=== PATIENT | male | born 1940 | race Caucasian/White ===

== ENCOUNTER 2017-02-25 06:59 | Observation (INO) ==
[2017-02-25] MEDS ORDERED: ASPIRIN PO STA (07:05)
--- NOTE | 2017-02-25 07:09 | EKG Report ---
Test Performed on : 02/25/2017 07:05:14 AM Test Reason : CHEST PAIN Blood Pressure : / mmHG Vent. Rate : 064 BPM Atrial Rate : 312 BPM P-R Int : 000 ms QRS Dur : 096 ms QT Int : 448 ms P-R-T Axes : 000 007 094 degrees QTc Int : [address] \T\ T wave abnormality, consider inferolateral ischemia Prolonged QT Abnormal ECG When compared with ECG of 17-NOV-2015 11:53, Inverted T waves have replaced nonspecific T wave abnormality in Lateral leads Unconfirmed Result
[2017-02-25 07:27] LABS: MANUAL DIFF NEEDED? NO
[2017-02-25 07:31] LABS: BASO% 0.5 % (0.0-0.8); EOS# 0.16 X1000 (0.0-0.7); EOS% 4.1 % (0.0-10.0); HEMATOCRIT 39.2 % (42.0-52.0); HEMOGLOBIN 13.5 g/dL (14.0-18.0); IMM GRAN# 0.01 X1000 (0.0-0.04); IMM GRAN% 0.3 % (0.0-0.5); LYMPH# 0.96 X1000 (1.2-3.4); LYMPH% 24.6 % (20.5-51.1); MCH 33.8 PG (27-31); MCHC 34.4 g/dL (33-37); MONO# 0.27 X1000 (0.11-0.59); MONO% 6.9 % (1.7-9.3); MPV 9.3 FL (7.4-10.4); NEUT% 63.6 % (42.2-75.2); PLT 146 X1000 (130-400)
--- NOTE | 2017-02-25 07:32 | PROVIDER DOCUMENTATION ---
HPI-Chest Pain - General Chief Complaint: Chest Pain Stated Complaint: chest pain Time Seen by Provider: 02/25/17 07:05 Source: patient Allergies/Adverse Reactions: Patient Allergies Allergy/AdvReac Type Severity Reaction Status Date / Time codeine [Codeine] Allergy Mild NAUSEA/VOMI Verified 05/12/16 09:02 TING Home Medications: Home Medication List Medication Instructions Recorded Confirmed Last Taken Type Aspirin [Aspir 81] 81 mg PO QAM 06/08/12 05/13/16 05/10/16 History Clonazepam [Klonopin] 1 mg PO QHS 06/08/12 05/13/16 05/12/16 History Clopidogrel Bisulfate [Plavix] 75 mg PO QAM 06/08/12 05/12/16 05/07/16 History Ranolazine [Ranexa] 1,000 mg PO BID 06/08/12 05/13/16 05/13/16 06:00 History Tamsulosin HCl [Flomax] 0.4 mg PO BID 06/08/12 05/13/16 05/13/16 06:00 History PRAVAstatin [Pravachol] 40 mg PO QHS 08/01/13 05/13/16 05/12/16 History Pantoprazole [Protonix] 40 mg PO DAILY@0700 08/01/13 05/13/16 05/13/16 06:00 History Carbidopa/Levodopa [Carbidopa-Levo 1 each PO TID 03/16/14 05/13/16 05/13/16 06: 00 History 25-100 Tab] Dutasteride [Avodart] 0.5 mg PO DAILY 02/25/17 02/25/17 Unknown History Quetiapine Fumarate [Seroquel] 25 mg PO HS 02/25/17 02/25/17 Unknown History - History of Present Illness-CP Nature of Presenting Problem: Pt is a very poor historian and no family members with him. Reports woke up this morning with L sided CP when he went to bathroom to urinate. He had a slight urinary incontinence this morning and urinated all over in the bathroom. 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 Most recent stress test was more than one year ago. Location: reports: other (L anterior chest) Chest Pain Radiation: reports: no radiation Quality of Pain: reports: aching Severity in ED: mild Onset/Duration: 1-3 hours ago Timing: improving, gone now Context/Activities at Onset: reports: light activity Modifying Factors: improves with: nothing Associated Symptoms: denies: abdominal pain, back pain, diaphoresis, dizziness, edema, nausea, shortness of breath, swelling/lump in chest, syncope Nitro Today/Relief: no nitro taken today Aspirin Treatment Today: provided by ED Similar Symptoms Previously?: No Recently Seen Here or By Another Healthcare Provider: No Review of Systems - Adult - REVIEW OF SYSTEMS - ADULT Constitutional: reports: no symptoms reported. denies: chills, fatique Eyes: reports: no symptoms reported Ears, Nose, Mouth & Throat: reports: no symptoms reported Cardiovascular: reports: see HPI, chest pain. denies: heart murmur, orthopnea, palpitations, poor circulation, PND, syncope Respiratory: reports: no symptoms reported. denies: chronic cough, cough, pleurisy, shortness of breath, wheezing Gastrointestinal: reports: see HPI, abdominal pain (Reports mild diffusd abd pain) Genitourinary: reports: see HPI, dysuria, discharge, urinary retention. denies : flank pain, frequent UTI's, hematuria Musculoskeletal: reports: no symptoms reported Integumentary: reports: no symptoms reported Neurological: reports: no symptoms reported Psychiatric: reports: no symptoms reported Endocrine: reports: no symptoms reported Hematologic/Lymphatic: reports: no symptoms reported Allergic/Immunologic: reports: no symptoms reported All Other Systems: Reviewed and Negative Past History - Adult - PAST MEDICAL HISTORY-ADULT Review of Records: reports: Old Records Reviewed, Nursing Assessment Review, Medications Reviewed, Social history reviewed & non-contributory. Major Childhood Illnesses: reports: denies history Cardiovascular: reports: CAD, HTN, hyperlipidemia, CT Respiratory: reports: sleep apnea Gastrointestinal: reports: GERD Obstetrical/Gynecological: reports: denies history Genitourinary: reports: denies history Musculoskeletal: reports: denies history Neurological: reports: Parkinson's Endocrine/Immune: reports: denies history Other Conditions: reports: other cancer (skin) - PRIOR SURGERIES/PROCEDURES Surgical/Procedure History: reports: CABG, cardiac stent, orthopedic (extremity ) (feet), other (dental) - PRIOR HOSPITALIZATIONS Prior Hospitalizations: reports: for similar symptoms - IMMUNIZATION STATUS Childhood Immunizations: See Nurse Assessment Flu Vaccine: See Nurse Assessment - FAMILY HISTORY Family History: reviewed, not pertinent Physical Exam-General - PHYSICAL EXAM-ADULT Initial Vital Signs Reviewed: Yes - CONSTITUTIONAL General Appearance: appears well, alert, other (Constant tremor from Parkinson disease) - HEAD, EARS, NOSE, MOUTH & THROAT HENMT: normocephalic/atraumatic - NECK Neck: non-tender, full range of motion, supple - RESPIRATORY Respiratory: chest non-tender, lungs clear, normal breath sounds, no pleuratic chest pain, no respiratory distress, no accessory muscle use - CARDIOVASCULAR Cardiovascular: normal peripheral pulses, regular rate, rhythm, no edema, no gallop, no JVD - GASTROINTESTINAL (ABDOMEN) Abdominal Exam: normal bowel sounds, non tender, soft, no organomegaly, no pulsatile mass - MUSCULOSKELETAL Back Exam: normal inspection, no CVA tenderness, no vertebral tenderness, CVA tenderness Extremity: normal range of motion, non-tender, normal gait, normal inspection - SKIN Integumentary: normal color, normal turgor, warm/dry - PSYCHIATRIC Psych/Mental Status: normal mood/affect, normal thought content, normal thought process, oriented x 3 Progress - PLAN OF CARE/RESULTS Progress/Plan/Lab Results: Vital Signs - 8 hr 02/25/17 07:01 Temperature 98.3 F Pulse Rate 66 Respiratory Rate 18 Blood Pressure 148/83 O2 Sat by Pulse Oximetry 93 L Laboratory Results - last 24 hr 02/25/17 02/25/17 02/25/17 07:26 07:26 07:26 WBC RBC Hgb Hct MCV MCH MCHC RDW Std Deviation Plt Count MPV Immature Gran % (Auto) Neut % (Auto) Lymph % (Auto) Mcleod % (Auto) Eos % (Auto) Baso % (Auto) Immature Gran # (Auto) Neut # (Auto) Lymph # (Auto) Mcleod # (Auto) Eos # (Auto) Baso # (Auto) PT INR APTT (Factor Assay) D-Dimer Specimen Type Sample Site pH pCO2 pO2 HCO3 Base Excess Oxyhemoglobin ABG O2 Sat (Calculated) ABG O2 Saturation ABG Carboxyhemoglobin ABG Methemoglobin David Test A-a O2 Difference Total Hemoglobin Lactate Blood Gas Modality FiO2 % Sodium 137 Potassium 3.2 L Chloride 102 Carbon Dioxide 26 Anion Gap 10 BUN 20 Creatinine 1.1 Estimated GFR/1.73 m2 > 60 BUN/Creatinine Ratio 18 Glucose 105 H Calculated Osmolality 277 Calcium 8.7 L Magnesium 2.1 Total Bilirubin 0.70 AST 12 ALT < 5 L Alkaline Phosphatase 44 Creatine Kinase 35 Troponin T < 0.010 [id number]-[id number] Pept 707 H Total Protein 6.7 Albumin 4.1 Globulin 3.0 Albumin/Globulin Ratio 2.0 Lipase 02/25/17 02/25/17 02/25/17 07:26 07:26 07:26 WBC 3.90 L RBC 4.00 L Hgb 13.5 L Hct 39.2 L MCV 98.0 MCH 33.8 H MCHC 34.4 RDW Std Deviation 12.2 Plt Count 146 MPV 9.3 Immature Gran % (Auto) 0.3 Neut % (Auto) 63.6 Lymph % (Auto) 24.6 Mcleod % (Auto) 6.9 Eos % (Auto) 4.1 Baso % (Auto) 0.5 Immature Gran # (Auto) 0.01 Neut # (Auto) 2.48 Lymph # (Auto) 0.96 L Mcleod # (Auto) 0.27 Eos # (Auto) 0.16 Baso # (Auto) 0.02 PT 14.7 INR 1.12 APTT (Factor Assay) 40.2 D-Dimer 0.47 Specimen Type Sample Site pH pCO2 pO2 HCO3 Base Excess Oxyhemoglobin ABG O2 Sat (Calculated) ABG O2 Saturation ABG Carboxyhemoglobin ABG Methemoglobin David Test A-a O2 Difference Total Hemoglobin Lactate Blood Gas Modality FiO2 % Sodium Potassium Chloride Carbon Dioxide Anion Gap BUN Creatinine Estimated GFR/1.73 m2 BUN/Creatinine Ratio Glucose Calculated Osmolality Calcium Magnesium Total Bilirubin AST ALT Alkaline Phosphatase Creatine Kinase Troponin T [id number]-Gosejeqczmx Pept Total Protein Albumin Globulin Albumin/Globulin Ratio Lipase 18 02/25/17 09:25 WBC RBC Hgb Hct MCV MCH MCHC RDW Std Deviation Plt Count MPV Immature Gran % (Auto) Neut % (Auto) Lymph % (Auto) Mcleod % (Auto) Eos % (Auto) Baso % (Auto) Immature Gran # (Auto) Neut # (Auto) Lymph # (Auto) Mcleod # (Auto) Eos # (Auto) Baso # (Auto) PT INR APTT (Factor Assay) D-Dimer Specimen Type ARTERIAL Sample Site R BRACHIAL pH 7.45 pCO2 40 pO2 94 HCO3 27.6 H Base Excess 3.5 H Oxyhemoglobin 95.5 ABG O2 Sat (Calculated) 17.6 ABG O2 Saturation 98.8 ABG Carboxyhemoglobin 2.00 ABG Methemoglobin 1.3 David Test NO A-a O2 Difference 6.0 Total Hemoglobin 13.0 Lactate 0.80 Blood Gas Modality ROOM AIR FiO2 % 21.0 Sodium Potassium Chloride Carbon Dioxide Anion Gap BUN Creatinine Estimated GFR/1.73 m2 BUN/Creatinine Ratio Glucose Calculated Osmolality Calcium Magnesium Total Bilirubin AST ALT Alkaline Phosphatase Creatine Kinase Troponin T [id number]-Ataiiognnpx Pept Total Protein Albumin Globulin Albumin/Globulin Ratio Lipase Orders Category Date Time Status Cardiac Monitoring DIRECTED Care 02/25/17 07:06 Active Oxygen Therapy- ED Nursing DIRECTED Care 02/25/17 07:06 Active Saline Loc NOW Care 02/25/17 07:06 Active CHEST-2 VIEWS [RAD] Stat Exams 02/25/17 07:06 Completed ABG [RESP] Routine Lab 02/25/17 09:25 Completed CBC WITH ELECTRONIC DIFF [HEME] Stat Lab 02/25/17 07:26 Completed CK PROFILE [SP CHEM] Stat Lab 02/25/17 07:26 Completed COMPREHENSIVE METABOLIC PANEL [CHEM] Stat Lab 02/25/17 07:26 Completed D-DIMER PL [COAG] Stat Lab 02/25/17 07:26 Completed LIPASE [CHEM] Stat Lab 02/25/17 07:26 Completed MAGNESIUM [CHEM] Stat Lab 02/25/17 07:26 Completed PRO B-NATRIURETIC PEPTIDE Stat Lab 02/25/17 07:26 Completed [address]IME WITH INR PL [COAG] Stat Lab 02/25/17 07:[address] [COAG] Stat Lab 02/25/17 07:26 Completed TROPONIN T Stat Lab 02/25/17 07:26 Completed ua [URINALYSIS PL W/POSS RFLX CULT] [URINALYSIS] Stat Lab 02/25/17 07:18 Ordered Aspirin Med 02/25/17 07:05 Discontinued 325 mg PO STAT STA Potassium Chloride E.r. [Klor-Con] Med 02/25/17 08:30 Discontinued 40 meq PO NOW ONE EKG [EKG] Stat Ther 02/25/17 07:06 Draft Result Diagrams: 02/25/17 07:26 02/25/17 07:26 - REASSESSMENT Reassessment #1 Time Reassessed: 10:29 Status: improving (Pt has been stable after ED arrival. came in and reports that pt's CP was so bad that she could not control the pain by 2 doses of Nitro, but pt passed out after the 2nd dose of Nitro because his BP dropped.) - EKG 1 EKG Interpretation (*Must complete 3 of following elements*): Abnormal Rate: 64 Rhythm: Junctional rhythm [place]: normal QRS: normal AL Interval: normal ST Wave: non-specific ST changes - XRAY 1 XRAY Study: Chest Impression: Abnormal XRAY Interpretation: Emphysema - CONSULTS/PCP/HOSPITALIST Notification #1 *Consult/PCP/Hospitalist*: Dr. Edwards Time Discussed: 10:31 Consult Disposition: Will see in ED, Admit Departure - Departure Date of Disposition Decision: 02/25/17 Time of Disposition Decision: 10:30 DIAGNOSIS: Chest pain, Syncope Disposition: ADMITTED INPATIENT 09 Certified Medical Emergency: Emergent Condition: Stable Referrals and Follow-Ups: Martínez Pascual MD [Primary Care Provider] - - Critical Care Note This patient required my direct & personal management of CC.: No
[2017-02-25 07:46] LABS: INR 1.12 (0.86-1.15); PROTIME 14.7 Seconds (12.1-15.5)
[2017-02-25 07:47] LABS: PTT PL 40.2 Seconds (22.6-43.9)
--- NOTE | 2017-02-25 07:52 | Diag Imaging Result Doc PS360 ---
EXAM: CHEST-2 VIEWS HISTORY: CP TECHNIQUE: COMPARISON: 11/17/2015 FINDINGS: The lungs are hyperexpanded. The heart is not enlarged. Sternal wires are present. The vessels are not distended. There are no infiltrates. No pleural effusions. IMPRESSION: Emphysema Electronically signed by Tyler Hernandez 02/25/2017 7:50 AM
[2017-02-25 08:14] LABS: AGAP 10; ALBUMIN 4.1 g/dL (3.5-5.0); ALKALINE PHOSPHATASE 44 U/L (32-122); BUN 20 mg/dL (8-22); CALCIUM 8.7 mg/dL (8.8-10.2); CHLORIDE 102 mmol/L (98-107); CK PROFILE 35 U/L (24-204); COSMO 277; GOT 12 U/L (10-34); GPT < 5 U/L (10-44); MAGNESIUM 2.1 mg/dL (1.5-2.7); POTASSIUM 3.2 mmol/L (3.5-5.1); SODIUM 137 mmol/L (136-145); TCO2 26 mmol/L (25-35); TOTAL PROTEIN 6.7 g/dL (6.3-8.3)
[2017-02-25] MEDS ORDERED: KLOR-CON PO ONE (08:30)
[2017-02-25 09:48] LABS: BE 3.5 mmoll (-3.0-3.0); BLOOD TYPE ARTERIAL; DRAW SITE R BRACHIAL; METHB 1.3 % (0.0-1.5); O2(CT) 17.6 mL/dL (15.0-23.0); PCO2(98.6) 40 mmHg (35-45); PO2(98.6) 94 mmHg (60-100); SAMPLE BLOOD; SAO2 98.8 % (95.0-100.0); pH(98.6) 7.45 (7.35-7.45)
[2017-02-25 09:56] LABS: ALLEN TEST NO; MODALITY ROOM AIR
[2017-02-25 12:34] LABS: URINE CULTURE PL NEEDED? NO
[2017-02-25 12:37] LABS: BILIRUBIN URINE NEGATIVE (NEGATIVE); BLOOD URINE NEGATIVE (NEGATIVE); CLARITY CLEAR (CLEAR); COLOR AMBER; GLUCOSE URINE NEGATIVE (NEGATIVE); LEUKOCYTES URINE TRACE (NEGATIVE); NITRITE URINE NEGATIVE (NEGATIVE); PROTEIN URINE 1+(30 mg/dL) mg/dL (NEGATIVE); UROBILINOGEN URINE NORMAL
[2017-02-25 12:51] LABS: URINE EPITHELIAL CELLS <10 /HPF (<10); URINE SOURCE CLEAN CATCH; URINE WBC <10 /HPF (<10)
--- NOTE | 2017-02-25 16:31 | HISTORY AND PHYSICAL ---
PRIMARY CARE PHYSICIAN: Martínez Pascual MD CHIEF COMPLAINT: Chest pain. HISTORY OF PRESENT ILLNESS: This is a 76-year-old gentleman with a history of CAD, and with prior KS and coronary artery bypass graft surgery, hypertension, who presented to the emergency room complaining of chest pain that. He said that he woke up with a left-sided aching type pain. He rated it as about 4 to 5/10 at its worst, although the did tell the ER staff that the patient's chest pain was so bad that 2 doses of nitroglycerin did not control the pain but he did pass out after the 2nd dose of nitroglycerin. He denied any accompanying symptoms. EKG revealed a junctional rhythm with the rate of 64. Troponins were negative. He is being admitted for further evaluation and treatment. PAST MEDICAL HISTORY: 1. Myocardial infarction. 2. Hypertension. 3. Gastroesophageal reflux disease. 4. Hyperlipidemia. 5. Obstructive sleep apnea. 6. Parkinson's. 7. Prostate cancer. PAST SURGICAL HISTORY: Coronary artery bypass graft, cardiac stents and back surgery. SOCIAL HISTORY: He denies alcohol, tobacco, or illicit drug use. ALLERGIES: Codeine which causes nausea and vomiting. HOME MEDICATIONS: A list will be obtained. REVIEW OF SYSTEMS: A 14-point review of systems is discussed with patient with pertinent positives being chest pain, syncope. He denied palpitations, shortness of breath, PND, orthopnea, cough fever chills, nausea, vomiting, diarrhea, constipation, black or bloody vomitus, black or bloody stools, hematuria. He does report chronic urinary retention. PHYSICAL EXAMINATION: GENERAL: This is a 76-year-old male who is sitting in the bed, in no distress. VITAL SIGNS: Blood pressure is 170/90, with a heart rate of 61, respirations are 16, temperature is 98.3 degrees with oxygen saturations of 100% on 2 L nasal cannula. HEENT: Head is normocephalic, atraumatic. Pupils equal, round, react to light. EOMs are intact. Sclerae anicteric. Mucous membranes are moist. NECK: Supple. Trachea midline. CARDIOVASCULAR: Regular rate and rhythm. S1 and S2 appreciated. PULMONARY: Breath sounds are clear with no increased work of breathing noted. GASTROINTESTINAL: Soft, nontender, nondistended with bowel sounds in all 4 quadrants. MUSCULOSKELETAL: Good range of motion of joints. EXTREMITIES: No clubbing, cyanosis, or edema. Calves are nontender. Pulses are palpable x4. He does have a constant tremor. DIAGNOSTICS: WBC is 3.9, with hemoglobin 13.5, hematocrit 39.2, and platelets of 146,000. Sodium is 137, potassium 3.2, BUN 20, creatinine 1.1 with a glucose of 105. Troponin is less than 0.010. Chest x-ray revealed emphysema. ASSESSMENT AND PLAN: 1. Chest pain. 2. Syncope following nitroglycerin sublingual. 3. Hypokalemia. 4. History of coronary artery disease. 5. Parkinson's disorder. 6. Gastroesophageal reflux disease. 7. Obstructive sleep apnea. He will be admitted to the floor placed on telemetry. We will trend his troponins as well as electrolytes. We will identify his home medications and continue as appropriate. Further treatments pending hospital course. Dictated by ROZ Salamanca for Delvin Edwards MD cc: ROZ Salamanca MD
[2017-02-25] MEDS: SINEMET 25/100 PO SCH ×2 (18:04→21:06)
[2017-02-25] MEDS: PLAVIX PO SCH (18:05)
[2017-02-25] MEDS ORDERED: KLONOPIN PO SCH (21:00)
[2017-02-25] MEDS ORDERED: SEROQUEL PO SCH (21:00)
[2017-02-25] MEDS ORDERED: PRAVACHOL PO SCH (21:00)
[2017-02-25] MEDS: RANEXA PO SCH (21:06)
[2017-02-25] MEDS: FLOMAX PO SCH (21:06)
--- NOTE | 2017-02-26 04:06 | CONSULTATION ---
DATE OF CONSULTATION: 02/25/2017 IMPRESSION: 1. Recurrent angina with little provocation. Suspect unstable angina. 2. Atherosclerotic coronary disease. A.Status post myocardial infarction in 1993. B.Status post coronary bypass grafting in 1994 at [facility] in [place], [place]. C.Status post coronary angioplasty/stent procedure in 2004. D.Status post coronary angioplasty/stent procedure in 2008. E.Status post coronary angioplasty/stent procedure in 2012 at [facility] in [place], [place]. F.Status post coronary angioplasty/stenting of saphenous vein graft in May 2016 in [place], [place] after patient presented with unstable angina. 3. Parkinson's disease. 4. Hypertension. 5. Hyperlipidemia. 6. Some tendency for syncope and hypotension after sublingual nitroglycerin. The patient has been taken off of all antihypertensive medications due to tendency for low blood pressure. Suspect some degree of autonomic dysfunction likely related to his Parkinson's disease. RECOMMENDATIONS: 1. Continue Ranexa. 2. Continue aspirin and Plavix. 3. Follow up cardiac enzymes. 4. Given clinical presentation, favor reevaluation with cardiac catheterization, coronary angiography, and possible coronary angioplasty/stenting. The rationale for this approach was reviewed with the patient. The patient and his very much wish to have a more aggressive approach. It is also unlikely that the patient can perform on treadmill study. The patient and his both expressed preference to have this done in [place] so that percutaneous intervention could be pursued as needed. 5. Suggest augmenting salt intake and, if blood pressure will allow, instituting beta-joby therapy with metoprolol. HISTORY: This 76-year-old white male with past history of atherosclerotic coronary disease as outlined above, Parkinson's disease, hypertension, hyperlipidemia, and some tendency for low blood pressure possibly related to autonomic dysfunction, was admitted through the emergency room after an episode of chest pain and syncope. After getting up this morning, he went to the bathroom and started experiencing substernal chest pressure/tightness. Discomfort is very much like what he experienced with his coronary disease in the past. His gave him one sublingual nitroglycerin and his discomfort continued. After 5 minutes he took a second nitroglycerin and started to become lightheaded. He was seated in a chair and experienced syncope. EMS was summoned and, on arrival, he had awakened. His indicates that she will give him Saltine crackers and this seems to help bring him back. He was brought to the emergency room for evaluation and was admitted. He has not had any further chest discomfort. He has had perhaps 3 or 4 episodes of chest discomfort since his last coronary angioplasty/stent procedure to saphenous vein graft back in May 2016. The latter was performed in [place], [place] after he presented with unstable angina. He is not very active physically due to his Parkinson's disease. He has considerable tremor. He has been considered for possible brain stimulator implant for his Parkinson's disease but this has not been pursued thus far. Due to tendency for low blood pressure, his antihypertensive medications have been withdrawn. PAST MEDICAL HISTORY: 1. Atherosclerotic coronary disease as outlined above. 2. Hypertension. 3. Parkinson's disease. 4. Gastroesophageal reflux disease. 5. Hyperlipidemia. 6. Prostate cancer. PAST SURGICAL HISTORY: 1. Coronary bypass grafting. 2. Unspecified back surgery. SOCIAL HISTORY: He does not some or use alcohol. He is . He lives in [place], [place]. ALLERGIES: Codeine causes nausea and vomiting. FAMILY HISTORY: Negative for premature coronary disease. REVIEW OF SYSTEMS: Pulmonary: Negative. Gastrointestinal: Noteworthy for gastroesophageal reflux symptoms but otherwise negative. Constitutional: Negative. Remainder of review of systems negative/noncontributory beyond history of present illness with 14 total systems reviewed. PHYSICAL EXAMINATION: General: Older white male in no distress. Vital signs: As recorded are stable. HEENT: Extraocular motions appear intact. Mucous membranes are moist. Neck: Supple without jugular venous distention. There are no carotid bruits. Chest: Clear to auscultation. Cardiac: Regular rate and rhythm without appreciable murmur or gallop. Abdomen: Soft and nontender. Bowel sounds are normal. Extremities: Without edema. Neurologic: Exam reveals him to be alert and oriented. He moves all four extremities equally well. Prominent resting tremor is demonstrated. Speech is fluent. LABORATORY DATA: Troponin less than 0.01. EKG demonstrates baseline tremor artifact particularly in the limb leads. Sinus rhythm is demonstrated with ST and T wave abnormality. Consider inferolateral ischemia. cc: Ruben Nolan MD
[2017-02-26 05:17] LABS: HEMATOCRIT 38.5 % (42.0-52.0); HEMOGLOBIN 13.3 g/dL (14.0-18.0); MCH 33.8 PG (27-31); MCHC 34.5 g/dL (33-37); MPV 9.8 FL (7.4-10.4); RBC 3.93 XMIL (4.7-6.1)
[2017-02-26 06:00] LABS: AGAP 9; ALKALINE PHOSPHATASE 42 U/L (32-122); BUN 18 mg/dL (8-22); CALCIUM 8.8 mg/dL (8.8-10.2); CHLORIDE 105 mmol/L (98-107); COSMO 276; GOT 12 U/L (10-34); GPT < 5 U/L (10-44); MAGNESIUM 2.2 mg/dL (1.5-2.7); POTASSIUM 3.7 mmol/L (3.5-5.1); SODIUM 138 mmol/L (136-145); TCO2 24 mmol/L (25-35); TOTAL PROTEIN 6.4 g/dL (6.3-8.3)
[2017-02-26] MEDS ORDERED: PROTONIX PO SCH (07:00)
[2017-02-26] MEDS ORDERED: SINEMET 25/100 PO SCH (08:00)
--- NOTE | 2017-02-26 08:24 | PROGRESS NOTE ---
DATE: 02/26/2017 SUBJECTIVE: Patient notes he is feeling better. He is not having any chest pain currently, although he has not been out of bed. He still feels weak. OBJECTIVE: Vital Signs: Reviewed. Temperature 97 degrees, pulse 55, respiratory rate 18, BP 167/83, and saturation 100% on 2 L. General: Patient is awake, alert. He is currently in no respiratory distress. HEENT: Normocephalic. Neck: Supple. CV: Regular rate. No appreciable murmur. Abdomen: Soft. Extremities: Moves all extremities, although generalized weakness. He has no edema. Neurologic: Patient's speech is slow but intact. He has a resting tremor. ASSESSMENT: 1. Parkinson's. 2. Recurrent angina with known history of coronary artery disease. 3. Hypertension. 4. Hyperlipidemia. 5. Syncope. 6. Hypotension, resolved. PLAN: We will re-discuss with cardiology as it appears as though Dr. Nolan is planning on Mr. Carrasco to be transferred to [place] for a left heart catheterization. We will continue to follow. Further orders as needed. cc: Delvin Edwards MD
[2017-02-26] MEDS ORDERED: AVODART PO SCH (09:00)
[2017-02-26] MEDS ORDERED: ASPIRIN EC PO SCH (09:00)
[2017-02-26] MEDS: RANEXA PO SCH (10:28)
[2017-02-26] MEDS: PLAVIX PO SCH (10:31)
[2017-02-26] MEDS: FLOMAX PO SCH (10:31)
[2017-02-26 15:41] VITALS: BP 140/82
--- NOTE | 2017-02-28 08:36 | DISCHARGE SUMMARY ---
ADMISSION DATE: 02/25/2017 DISCHARGE DATE: 02/26/2017 DIAGNOSES: 1. Parkinson's. 2. Recurrent angina. 3. Hypertension. 4. Hyperlipidemia. 5. Syncope and hypotension after sublingual nitroglycerin. DIAGNOSTICS: On 02/25/2017, chest x-ray revealed emphysema. CONSULTS: Dr. Ruben Nolan, cardiology. HOSPITAL COURSE: Mr. Carrasco presented to the emergency room after having a syncopal episode after taking 2 sublingual nitroglycerin. The states that the last 2 or 3 times he has received nitroglycerin, he has passed out. This was given for chest pain that was a left-sided, aching type pain that was consistent with his prior heart pain and [place]. Of note, the patient is status post coronary artery bypass graft in 1994 with 3 subsequent interventions, the last being in May of 2016 which was in one of the saphenous grafts. He had no further chest pain after admission, although he did state that when he walked from the bed to the bathroom, which was probably about 4 feet and back, that he was very short of breath and he felt like he could not walk much farther. His troponins were negative. He was evaluated by Dr. Nolan in cardiology who felt that this was recurrent angina with little provocation, suspecting unstable angina. As the patient just had a heart catheterization and a stent placed to the saphenous vein graft in May, and this was consistent with the pain, that the patient needed to be transferred to [place] to be catheterized so that percutaneous intervention could be pursued if needed. We did institute beta blockers as per his recommendation. PHYSICAL EXAMINATION: Cardiovascular: Regular rate and rhythm. S1 and S2 are appreciated. Pulmonary: Breath sounds are clear with no increased work of breathing noted. Gastrointestinal: Abdomen is soft, nontender, nondistended with bowel sounds in all 4 quadrants. Extremities: No clubbing, cyanosis, or edema. Calves are nontender. Pulses are palpable x4. DISCHARGE MEDICATIONS: Carbidopa/levodopa 25/100 as directed, aspirin 81 mg daily, Plavix 75 daily, Ranexa 1000 b.i.d., Protonix 40 mg daily, Pravachol 40 at bedtime, Flomax 0.4 b.i.d., Klonopin 1 mg at bedtime, Avodart 0.5 daily, Seroquel 12.5 at bedtime. DISCHARGE VITAL SIGNS: Blood pressure is 140/82, with a heart rate of 70, respirations 18, temperature 97.5 degrees oral, with room air saturations of 100%. DISCHARGE DIET: Healthy heart. DISPOSITION: The patient was discharged and transferred to [facility] via EMS transport in stable condition. TIME SPENT: This is a greater than a 30 minute discharge. Dictated by ROZ Salamanca for Delvin Edwards MD cc: ROZ Salamanca MD
== END 2017-02-26 16:18 | disposition short-term general hospital (02) ==
LOC: P.ED 06:59 → P.MEDSURG 06:59
PROVIDERS: ATTEND Family Medicine